=== PATIENT | female | born 1960 | race African-American/Black ===

== ENCOUNTER 2018-10-04 13:02 | Outpatient (CLI) | payer OTHER ==
--- NOTE | 2018-10-04 13:58 | BD ---
DEXA BONE DENSITY: HISTORY: Postmenopausal. FINDINGS: Lumbar Spine: BMD (g/cm2) L1 0.833 T-Score: -1.4 L2 0.841 T-Score: -1.7 L3 0.922 T-Score: -1.5 L4 0.861 T-Score: -1.8 L1-L4 0.865 T-Score: -1.7 Femoral Neck: 0.654 T-Score: -1.8 Total Femur: 0.877 T-Score: -0.5 Impression: 1. Osteopenia of the left femoral neck and lumbar spine. 2. Ten-year fracture risk for major osteoporotic fracture is 7.6% and hip fracture 0.7%. These frac ture probabilities were calculated for an untreated patient. POS: CARLOS ENRIQUE
== END 2018-10-04 13:03 | disposition home or self-care (01) ==
LOC: BICMAMMO 13:02
PROVIDERS: ATTEND Family Medicine
DX: Z12.31 Encounter for screening mammogram for malignant neoplasm of breast (principal); Z13.820 Encounter for screening for osteoporosis; M85.89 Other specified disorders of bone density and structure, multiple sites; Z78.0 Asymptomatic menopausal state
CPT/HCPCS: 77063; 77067; 77080

== ENCOUNTER 2019-10-10 12:43 | Outpatient (CLI) | payer OTHER ==
--- NOTE | 2019-10-10 13:22 | MMO ---
Bilateral MAMMO Bilat Screen [facility]. CLINICAL HISTORY: Patient is 58 years old and is seen for screening. The patient has no family history of breast cancer. The patient has no personal history of cancer. VIEWS: The views performed were: bilateral craniocaudal with tomosynthesis and bilateral mediolateral oblique with tomosynthesis. FILMS COMPARED: The present examination has been compared to prior imaging studies performed at [facility] on 02/05/2009 and 10/04/2018. This study has been interpreted with the assistance of computer-aided detection. MAMMOGRAM FINDINGS: The breasts are heterogeneously dense, which could obscure a lesion on mammography. There are stable benign appearing calcifications seen in both breasts. There are no suspicious masses, suspicious calcifications, or new areas of architectural distortion. IMPRESSION: THERE IS NO MAMMOGRAPHIC EVIDENCE OF MALIGNANCY. A ROUTINE FOLLOW-UP MAMMOGRAM IN 1 YEAR IS RECOMMENDED. THE RESULTS OF THIS EXAM WERE SENT TO THE PATIENT. ACR BI-RADS Category 2 - Benign finding MAMMOGRAPHY NOTE: 1. A negative mammogram report should not delay a biopsy if a dominant of clinically suspicious mass is present. 2. Approximately 10% to 15% of breast cancers are not detected by mammography. 3. Adenosis and dense breasts may obscure an underlying neoplasm. Reported by: XIANG HOLLOWAY MD Electonically Signed: [id number]
--- NOTE | 2019-10-10 14:13 | BD ---
BONE DENSITOMETRY USING DEXA: Date: 10/10/2019 HISTORY: Postmenopausal screening for osteoporosis. FINDINGS: Lumbar Spine: BMD (g/cm2) L1 0.843 T-Score: -1.3 Z-Score: -0.2 L2 0.914 T-Score: -1.0 Z-Score: 0.2 L3 0.930 T-Score: -1.4 Z-Score: -0.1 L4 0.971 T-Score: -0.8 Z-Score: 0.5 L1-L4 0.916 T-Score: -1.2 Z-Score: 0.1 Femoral Neck: 0.692 T-Score: -1.4 Z-Score: -0.2 Total Femur: 0.815 T-Score: -1.0 Z-Score: -0.2 There has been interval improvement of 5.8% in the bone mineral density of the lumbar spine and a red uction of 7.1% in the bone mineral density of the proximal femur since 10/04/2018. The 10 year fracture risk for a major osteoporotic fracture is 7.2% and for a hip fracture is 0.5%. IMPRESSION: Osteopenia. POS: CARLOS ENRIQUE
== END 2019-10-10 12:44 | disposition home or self-care (01) ==
LOC: BICMAMMO 12:43
PROVIDERS: ATTEND Family Medicine
DX: Z12.31 Encounter for screening mammogram for malignant neoplasm of breast (principal); Z13.820 Encounter for screening for osteoporosis; M85.89 Other specified disorders of bone density and structure, multiple sites
CPT/HCPCS: 77063; 77067; 77080

== ENCOUNTER 2020-10-11 07:55 | Outpatient (CLI) | payer OTHER ==
--- NOTE | 2020-10-11 08:24 | BD ---
EXAM: Bone densitometry using DEXA HISTORY: 59 yo female. Screening for postmenopausal osteoporosis FINDINGS: L1--bone mineral density 0.902 g/sq cm; T score -0.8 ; Z score -0.3 L2--bone mineral density 1.013 g/sq cm; T score -0.1 ; Z score 0.4 L3--bone mineral density 0.978 g/sq cm; T score -1.0 ; Z score -0.4 L4--bone mineral density 0.893 g/sq cm; T score -1.5 ; Z score -1.0 Total L1-L4--bone mineral density 0.945 g/sq cm; T score -0.9 ; Z score -0.4 Left femoral neck--bone mineral density0.724; T score -1.1 ; Z score -0.6 Total proximal left femur--bone mineral density 0.833; T score -0.9 ; Z score -0.6 There has been an interval increase of 3.2% in the BMD of the lumbar spine and a increase of 2.2% i n the BMD of the proximal femur since the previous study of 10/10/2019. The 10 year fracture risk for a major osteoporotic fracture is 6.7% and for a hip fracture is 0.4%. IMPRESSION: Osteopenia
--- NOTE | 2020-10-11 08:45 | MMO ---
Bilateral MAMMO Bilat Screen [facility]. CLINICAL HISTORY: Patient is 59 years old and is seen for screening. The patient has no family history of breast cancer. The patient has no personal history of cancer. VIEWS: The views performed were: bilateral craniocaudal with tomosynthesis and bilateral mediolateral oblique with tomosynthesis. FILMS COMPARED: The present examination has been compared to prior imaging studies performed at [facility] on 02/05/2009, 10/04/2018 and 10/10/2019. This study has been interpreted with the assistance of computer-aided detection. MAMMOGRAM FINDINGS: The breasts are heterogeneously dense, which could obscure a lesion on mammography. Benign calcifications are noted bilaterally. There are no suspicious masses, suspicious calcifications, or new areas of architectural distortion. IMPRESSION: THERE IS NO MAMMOGRAPHIC EVIDENCE OF MALIGNANCY. A ROUTINE FOLLOW-UP MAMMOGRAM IN 1 YEAR IS RECOMMENDED. THE RESULTS OF THIS EXAM WERE SENT TO THE PATIENT. ACR BI-RADS Category 2 - Benign finding MAMMOGRAPHY NOTE: 1. A negative mammogram report should not delay a biopsy if a dominant of clinically suspicious mass is present. 2. Approximately 10% to 15% of breast cancers are not detected by mammography. 3. Adenosis and dense breasts may obscure an underlying neoplasm. Reported by: MANDY MOREAU MD Electonically Signed: [id number]
== END 2020-10-11 07:56 | disposition home or self-care (01) ==
LOC: BICMAMMO 07:55
PROVIDERS: ATTEND Family Medicine
DX: Z12.31 Encounter for screening mammogram for malignant neoplasm of breast (principal); Z13.820 Encounter for screening for osteoporosis; Z78.0 Asymptomatic menopausal state; M85.89 Other specified disorders of bone density and structure, multiple sites
CPT/HCPCS: 77063; 77067; 77080

== ENCOUNTER 2022-12-01 08:31 | Outpatient (CLI) | payer BC | END 2022-12-01 08:32 | disposition home or self-care (01) | LOC: BICMAMMO 08:31 | PROVIDERS: ATTEND Family Medicine | DX: Z12.31 Encounter for screening mammogram for malignant neoplasm of breast (principal) | CPT/HCPCS: 77063; 77067 ==

== ENCOUNTER 2023-03-20 09:08 | Outpatient (CLI) | payer BC | END 2023-03-20 09:09 | disposition home or self-care (01) | LOC: RAD 09:08 | PROVIDERS: ATTEND Family Medicine | DX: M54.50 Low back pain, unspecified (principal); M54.6 Pain in thoracic spine; M47.814 Spondylosis without myelopathy or radiculopathy, thoracic region; M47.816 Spondylosis without myelopathy or radiculopathy, lumbar region; M43.16 Spondylolisthesis, lumbar region | CPT/HCPCS: 72072; 72100 ==

== ENCOUNTER 2023-05-10 10:01 | Outpatient (CLI) | payer BC | END 2023-05-10 10:02 | disposition home or self-care (01) | LOC: RAD 10:01 | PROVIDERS: ATTEND Family Medicine | DX: M54.2 Cervicalgia (principal); M47.812 Spondylosis without myelopathy or radiculopathy, cervical region | CPT/HCPCS: 72040 ==

== ENCOUNTER 2024-09-10 11:23 | Outpatient (CLI) | payer BC | END 2024-09-10 11:24 | disposition home or self-care (01) | LOC: BICRAD 11:23 | PROVIDERS: ATTEND Family Medicine | DX: R10.9 Unspecified abdominal pain (principal) | CPT/HCPCS: 74018 ==

== ENCOUNTER 2025-06-09 09:57 | Outpatient (CLI) | payer BC | END 2025-06-09 09:58 | disposition home or self-care (01) | LOC: ULT 09:57 | PROVIDERS: ATTEND Internal Medicine Nephrology | DX: I10 Essential (primary) hypertension (principal); N28.1 Cyst of kidney, acquired | CPT/HCPCS: 76770; 93975 ==